=== PATIENT | female | born 1990 | race Caucasian/White ===

== ENCOUNTER 2020-11-12 18:11 | Emergency (ER) | payer MEDICAID ==
[~2020-11-12] VITALS: Ht 165.1 cm; Wt 61.0 kg
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
[2020-11-12 20:28] VITALS: BP 96/68
== END 2020-11-12 20:29 | disposition home or self-care (01) ==
LOC: ED 18:21
DX: S00.93XA Contusion of unspecified part of head, initial encounter (principal); S00.33XA Contusion of nose, initial encounter; S05.11XA Contusion of eyeball and orbital tissues, right eye, initial encounter; S00.83XA Contusion of other part of head, initial encounter; F10.10 Alcohol abuse, uncomplicated; Y90.9 Presence of alcohol in blood, level not specified; X58.XXXA Exposure to other specified factors, initial encounter; Y93.89 Activity, other specified; Y92.89 Other specified places as the place of occurrence of the external cause; Y99.8 Other external cause status
CPT/HCPCS: 70450; 70486; 99285